=== PATIENT | female | born 1990 | race American Indian/Alaskan Native ===

== ENCOUNTER 2020-08-07 22:52 | Emergency (ER) | payer BC ==
[2020-08-07 22:59] VITALS: BP 149/102
--- NOTE | 2020-08-07 23:05 | Emergency Department Report ---
ED Lower Extremity HPI - General Chief Complaint: Extremity Injury, Lower Stated Complaint: FALL/TOE INJURY Source: patient Mode of arrival: Ambulatory Limitations: No Limitations - History of Present Illness MD Complaint: foot injury -: Sudden, days(s) (2) Injury: Toes: Left (great to pain ) Type of Injury: other (slip and fall toe became lodged behind her) Severity: moderate, severe Worsens With: weight bearing, movement, palpation Context: fall Associated Symptoms: swelling, able to partially bear weight - Related Data Previous Rx's Medication Instructions Recorded Last Taken Type Ketorolac [Toradol] 10 mg PO Q6H PRN #10 tablet 08/07/20 Unknown Rx Allergies Allergy/AdvReac Type Severity Reaction Status Date / Time No Known Allergies Allergy Unverified 08/07/20 22:59 ED Review of Systems ROS: Stated complaint: FALL/TOE INJURY Other details as noted in HPI Comment: All other systems reviewed and negative ED Past Medical Hx - Past Medical History Previous Medical History?: No - Surgical History Past Surgical History?: Yes Additional Surgical History: hip surgery - Social History Smoking Status: Never Smoker Substance Use Type: None - Medications Home Medications: Home Medications Medication Instructions Recorded Confirmed Last Taken Type Ketorolac [Toradol] 10 mg PO Q6H PRN #10 tablet 08/07/20 Unknown Rx ED Physical Exam - General Limitations: No Limitations General appearance: alert, in no apparent distress - Head Head exam: Present: atraumatic, normocephalic - Eye Eye exam: Present: normal appearance - ENT ENT exam: Present: mucous membranes moist - Neck Neck exam: Present: normal inspection - Respiratory Respiratory exam: Present: normal lung sounds bilaterally. Absent: respiratory distress - Cardiovascular Cardiovascular Exam: Present: regular rate, normal rhythm. Absent: systolic murmur, diastolic murmur, rubs, gallop - GI/Abdominal GI/Abdominal exam: Present: soft, normal bowel sounds - Extremities Exam Extremities exam: Present: normal inspection - Expanded Lower Extremity Exam Left Foot/Toe exam: Present: tenderness, swelling. Absent: amputation, puncture wound, foreign body Neuro vascular tendon exam: Present: no vascular compromise. Absent: abnormal cap refill 1 - pain area. tenderness. swelling - Back Exam Back exam: Present: normal inspection - Neurological Exam Neurological exam: Present: alert, oriented X3 - Psychiatric Psychiatric exam: Present: normal affect, normal mood - Skin Skin exam: Present: warm, dry, intact, normal color. Absent: rash ED Course Vital Signs 08/07/20 22:56 Temperature 97.9 F Pulse Rate 75 Respiratory 12 Rate Blood Pressure 149/102 O2 Sat by Pulse 97 Oximetry ED Lower Extremity MDM - Radiology Data Radiology results: report reviewed [facility] [address] [place] [address] XRay Report Signed Patient: JOSE THOMAS MR#: [id number] : 1990 Acct:[id number] Age/Sex: 29 / F ADM Date: 08/07/20 Loc: ED Attending Dr: Ordering Physician: WINIFRED COREA Date of Service: 08/07/20 Procedure(s): XR toe(s) 2+V LT Accession Number(s): [id number] cc: WINIFRED COREA Fluoro Time In Minutes: LEFT GREAT TOE 3 VIEWS INDICATION / CLINICAL INFORMATION: hallux pain COMPARISON: The FINDINGS: BONES / JOINT(S): No acute fracture or subluxation. 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 SOFT TISSUES: No significant abnormality. ADDITIONAL FINDINGS: None. Signer Name: Deniz Howell MD Signed: 08/07/2020 11:21 PM Workstation Name: [id number] Transcribed By: SS Dictated By: Deniz Howell MD Electronically Authenticated By: Deniz Howell MD Signed Date/Time: 08/07/202320 DD/ 18 TD/TT: Critical care attestation.: If time is entered above; I have spent that time in minutes in the direct care of this critically ill patient, excluding procedure time. ED Disposition Clinical Impression: Contusion, toe Disposition: DC-01 TO HOME OR SELFCARE Is pt being admited?: No Does the pt Need Aspirin: No Condition: Stable Instructions: Contusion, How to Use Cold Therapy Prescriptions: Ketorolac [Toradol] 10 mg PO Q6H PRN #10 tablet PRN Reason: Pain Referrals: PRIMARY CARE, [Primary Care Provider] - 3-5 Days [facility] [Provider Group] - 3-5 Days
--- NOTE | 2020-08-07 23:25 | XRay Report ---
LEFT GREAT TOE 3 VIEWS INDICATION / CLINICAL INFORMATION: hallux pain COMPARISON: The FINDINGS: BONES / JOINT(S): No acute fracture or subluxation. There is mild degenerative change in the great to e MTP joint with mild hallux valgus deformity. SOFT TISSUES: No significant abnormality. ADDITIONAL FINDINGS: None. Signer Name: Deniz Howell MD Signed: 08/07/2020 11:21 PM Workstation Name: [id number]
== END 2020-08-07 23:38 | disposition home or self-care (01) ==
LOC: ED 22:52
DX: S90.122A Contusion of left lesser toe(s) without damage to nail, initial encounter (principal); Z79.899 Other long term (current) drug therapy; Z98.890 Other specified postprocedural states; W01.0XXA Fall on same level from slipping, tripping and stumbling without subsequent striking against object, initial encounter; Y93.89 Activity, other specified; Y92.89 Other specified places as the place of occurrence of the external cause; Y99.8 Other external cause status
CPT/HCPCS: 99283